=== PATIENT | female | born 1985 | race African-American/Black ===

== ENCOUNTER 2018-04-08 14:45 | Emergency (ER) | payer OTHER ==
[2018-04-08 15:13] VITALS: BP 107/79
--- NOTE | 2018-04-08 16:29 | ED Physician Documentation ---
History of Present Illness - Stated complaint Stated Complaint: FLU LIKE SX - Chief complaint Chief Complaint: General - History obtained from History obtained from: Patient - History of Present Illness Timing: Other (She has been sick for about a week and a half with cough and congestion as well as a fever A few days ago but that is now gone.) Review of Systems Constitutional: reports: Fever (gone) Ears: denies: Ear pain Nose: reports: Rhinorrhea / runny nose Throat: reports: Sore throat Respiratory: reports: Cough. denies: Dyspnea PD PAST MEDICAL HISTORY - Present Medications Home Medications: Ambulatory Orders Medication Instructions Recorded Confirmed Guaifenesin/Dextromethorphan 5 ml PO Q6H PRN #120 ml 04/08/18 [Cough Dm Syrup] Ibuprofen [Motrin] 800 mg PO Q8H PRN #30 tablet 04/08/18 - Allergies Allergies/Adverse Reactions: Allergies Allergy/AdvReac Type Severity Reaction Status Date / Time No Known Drug Allergies Allergy Verified 04/08/18 15:13 PD ED PE NORMAL - Vitals Vital signs reviewed: Yes - General General: Alert and oriented X 3, No acute distress - HEENT HEENT: Ears normal, Pharynx benign - Neck Neck: Supple, no meningeal sign, No bony TTP - Cardiac Cardiac: RRR, No murmur - Respiratory Respiratory: No respiratory distress, Clear bilaterally - Abdomen Abdomen: Non tender - Derm Derm: No rash - Neuro Neuro: Alert and oriented X 3, Normal speech Results - Vitals Vitals: Vital Signs - 24 hr 04/08/18 15:10 Temperature 36.9 C Heart Rate 114 H Respiratory 18 Rate Blood Pressure 107/79 O2 Saturation 98 Oxygen O2 Source Room air - Labs Labs: Laboratory Tests 04/08/18 15:17 Influenza A (Rapid) Negative Influenza B (Rapid) Negative Departure - Departure Disposition: 01 Home, Self Care Clinical Impression: Viral URI with cough Condition: Good Record reviewed to determine appropriate education?: Yes Instructions: ED Upper Resp Infec No Abx Tx Prescriptions: Guaifenesin/Dextromethorphan [Cough Dm Syrup] 5 ml PO Q6H PRN #120 ml PRN Reason: Cough Ibuprofen [Motrin] 800 mg PO Q8H PRN #30 tablet PRN Reason: PAIN &/OR FEVER Comments: Return if fevers recur or if worsening. Drink plenty of fluids. Follow-up with your doctor at the end of the week if not better. Forms: Activity restrictions
== END 2018-04-08 17:01 | disposition home or self-care (01) ==
LOC: ED 14:45
DX: J06.9 Acute upper respiratory infection, unspecified (principal)
CPT/HCPCS: 87275; 87276; 99283

== ENCOUNTER 2018-05-26 15:32 | Emergency (ER) | payer OTHER ==
--- NOTE | 2018-05-26 16:08 | ED Physician Documentation ---
PD HPI BACK PAIN - Stated complaint Stated Complaint: BACK PX - Chief complaint Chief Complaint: Back Pain - History obtained from History obtained from: Patient - History of Present Illness Timing - onset: Yesterday Timing - duration: Days (1) Timing - details: Abrupt onset (There was no significant injury but noted onset of right lower back pain with bending over yesterday. She has had prior similar back pains but the last episode was 1-1/2 years ago and lasted for several days to week or so. She had been doing okay recently and then the onset of pain yesterday which was worse today. She denies any numbness tingling in her legs. She denies any incontinence. She has not had any fever or chills. There is no skin rash.), Still present (Worse today with getting up and moving around.) Location: Lower, Right Quality: Spasm, Sharp Associated symptoms: No: Fever, Weakness, Numbness, Incontinent of urine Worsened by: Movement, Twisting, Palpation Contributing factors: Lifting. No: Trauma Similar symptoms before: Diagnosis (L5 HNP with episodic lower back pains. No prior radiculitis.) Recently seen: Not recently seen Review of Systems Constitutional: denies: Fever, Chills, Myalgias Nose: denies: Rhinorrhea / runny nose, Congestion Throat: denies: Sore throat Respiratory: denies: Cough GI: denies: Nausea, Vomiting, Diarrhea : denies: Dysuria, Frequency, Incontinent Neurologic: denies: Focal weakness, Numbness PD PAST MEDICAL HISTORY - Past Medical History Cardiovascular: None Respiratory: None Neuro: None Endocrine/Autoimmune: None - Past Surgical History Past Surgical History: No - Present Medications Home Medications: Ambulatory Orders Medication Instructions Recorded Confirmed Methocarbamol [Robaxin] 500 mg PO Q6H PRN #30 tablet 05/26/18 Naproxen 500 mg PO BID #20 tablet 05/26/18 Oxycodone HCl/Acetaminophen 1 - 2 each PO Q6H PRN #25 tablet 05/26/18 [Percocet 5-325 mg Tablet] - Allergies Allergies/Adverse Reactions: Allergies Allergy/AdvReac Type Severity Reaction Status Date / Time No Known Drug Allergies Allergy Verified 05/26/18 15:36 - Social History Does the pt smoke?: No Smoking Status: Never smoker Does the pt drink ETOH?: No Does the pt have substance abuse?: No - Immunizations Immunizations are current?: Yes - POLST Patient has POLST: No PD ED PE NORMAL - Vitals Vital signs reviewed: Yes - General General: Alert and oriented X 3, Well developed/nourished, Other (does appear in pain) - Abdomen Abdomen: Soft, Non tender - Back Back: No CVA TTP, No spinal TTP (She is actually mainly tender in the right upper SI joint area and iliac crest. There is no rash or sores noted in the area. She does have some point tenderness which triggers her discomfort. There is normal sensation to light touch and pinprick in both legs in a dermatomal areas. She has good color and capillary refill in the feet. There is good motor in the lower legs. She has pain with range of motion of the low back.) - Derm Derm: Normal color, Warm and dry, No rash - Extremities Extremities: No tenderness to palpate - Neuro Neuro: Alert and oriented X 3, No motor deficit, No sensory deficit, Normal speech Results - Vitals Vitals: Vital Signs - 24 hr 05/26/18 05/26/18 15:34 18:07 Temperature 36.8 C 36.5 C Heart Rate 85 80 Respiratory 18 18 Rate Blood Pressure 119/80 109/64 O2 Saturation 99 97 Oxygen O2 Source Room air PD MEDICAL DECISION MAKING - ED course Complexity details: considered differential (Low back pain without any red flags. She is quite uncomfortable and she is given some parenteral IM medicati ons in the ER. This helped moderately. She did have a focal tenderness at the right SI joint and I did a trigger point injection with Marcaine and Kenalog and give another dose of Dilaudid. Between the 2 shoes reasonably comfortable and able to move around and ambulate. We will discharge her home.), d/w patient Departure - Departure Disposition: , Self Care Clinical Impression: Back pain Qualifiers: Back pain location: low back pain Chronicity: acute Back pain laterality: right Sciatica presence: without sciatica Qualified Code(s): M54.5 - Low back pain Condition: Stable Record reviewed to determine appropriate education?: Yes Instructions: ED Low Back Pain Injury Follow-Up: Arvind Virk MD [Primary Care Provider] - Prescriptions: Methocarbamol [Robaxin] 500 mg PO Q6H PRN #30 tablet PRN Reason: Spasms Naproxen 500 mg PO BID #20 tablet Oxycodone HCl/Acetaminophen [Percocet 5-325 mg Tablet] 1 - 2 each PO Q6H PRN #25 tablet PRN Reason: pain Comments: Heat and gentle stretching for the low back. Physical treatment modalities such as chiropractic and massage are also good. Use an anti-inflammatory such as naproxen 500 mg twice daily. Add Robaxin muscle relaxant for spasms and stiffness. To this add Tylenol or Percocet if needed for pains. Recheck if not improving well over the next few days. Progress activity as able.
[2018-05-26] MEDS ORDERED: METHOCARBAMOL 500 MG TABLET PO STA ×2 (16:10→16:30)
[2018-05-26] MEDS ORDERED: CHERRY SYRUP 10 ML UDC PO ONE ×2 (16:10→16:30)
[2018-05-26] MEDS ORDERED: ACETAMINOPHEN 325 MG TABLET PO STA (16:10)
[2018-05-26] MEDS ORDERED: DEXAMETHASONE 10 MG/ML VIAL PO STA ×2 (16:10→16:30)
[2018-05-26] MEDS ORDERED: KETOROLAC 30 MG/ML VIAL IM STA (16:30)
[2018-05-26] MEDS ORDERED: HYDROmorphone 2 MG/ML VIAL IM STA ×2 (16:30→17:27)
[2018-05-26] MEDS ORDERED: BUPIVACAINE 0.5%-EPI 1:200000 PF 10 ML VIAL SUBQ STA (17:27)
[2018-05-26] MEDS ORDERED: TRIAMCINOLONE 40 MG/ML VIAL IM STA (17:27)
[2018-05-26 18:09] VITALS: BP 109/64
== END 2018-05-26 18:34 | disposition home or self-care (01) ==
LOC: ED 15:32
DX: M54.5 Low back pain (principal)
CPT/HCPCS: 20552; 96372; 99283; A9270; J1170

== ENCOUNTER 2018-07-02 07:25 | Outpatient (CLI) | payer OTHER ==
[2018-07-02] MEDS ORDERED: GADOBUTROL 10 MMOL/10 ML VIAL ONE (07:41)
[2018-07-02] MEDS ORDERED: GADOBUTROL 10 MMOL/10 ML VIAL IVP ONE ×2 (08:12)
--- NOTE | 2018-07-02 16:29 | MRI Report ---
Reason: OTHER SPECIFIED JOINT DISORDERS,RIGHT WRIST,GANGLI Procedure Date: 07/02/2018 Accession Number: [id number] / [id number] Procedure: MRI - Wrist RT W/WO CPT Code: FULL RESULT: EXAM: RIGHT WRIST MRI WITHOUT AND WITH CONTRAST EXAM DATE: 07/02/2018 09:15 AM. CLINICAL HISTORY: Other specified joint disorders, right wrist, ganglion. COMPARISON: None. TECHNIQUE: Multiplanar, multisequence T1-weighted and fluid-sensitive sequences of the wrist before and after administration of intravenous contrast. IV contrast: 8 mL Gadavist given IV contrast, no reaction. Other: None. FINDINGS: Bones: No fractures or subluxations. No marrow edema or abnormal enhancement. No bone lesions. Cartilage: The articular cartilage is unremarkable. The triangular fibrocartilage complex is unremarkable. Ligaments: The scapholunate and lunotriquetral ligaments are intact. The visualized other intrinsic, extrinsic and collateral ligaments are unremarkable. Mild DISI deformity is present. Tendons: The extensor compartments I through and flexor tendons are unremarkable without tear or tenosysnovitis. Musculature: No edema or fatty atrophy. Other: The contents of the carpal tunnel, including the median nerve, are unremarkable. Guyons canal is unremarkable. There is a fairly large intermediate on T1, increased T2 benign-appearing cystic structure located at the volar medial aspect of the wrist just proximal to the pisiform-hamate articulation. Minimal peripheral enhancement. This measures 1.9 x 1.5 cm transversely and extends for 2 cm cephalocaudal extent. No joint effusions or synovitis. The subcutaneous tissues are unremarkable. No abscess or cellulitis. IMPRESSION: 1. Ganglion cyst is seen at the volar medial aspect of the wrist just proximal to the pisiform-hamate articulation. Minimal peripheral enhancement. This is a benign appearance, measuring 1.9 x 1.5 cm transversely extending for a 2 cm cephalocaudal extent. RADIA
== END 2018-07-02 07:26 | disposition home or self-care (01) ==
LOC: DI 07:25
PROVIDERS: ATTEND Orthopaedic Surgery
DX: M67.431 Ganglion, right wrist (principal)
CPT/HCPCS: 73223; A9585

== ENCOUNTER 2018-09-03 15:02 | Emergency (ER) | payer OTHER ==
[2018-09-03] MEDS ORDERED: AMOX/CLAV 875 MG/125 MG TABLET PO STA (16:12)
[2018-09-03] MEDS ORDERED: IBUPROFEN 800 MG TABLET PO STA (16:13)
--- NOTE | 2018-09-03 16:16 | ED Physician Documentation ---
PD HPI HEADACHE - Stated complaint Stated Complaint: SINUS PRESSURE - Chief complaint Chief Complaint: Heent - History obtained from History obtained from: Patient - History of Present Illness Timing - onset: How many days ago (8) Timing - duration: Days (8) Timing - details: Gradual onset Worst headache ever?: Worst headache ever? (No) Location: Front Quality: Aching Associated symptoms: Other (sinus pressure) Similar symptoms before: Has not had sx before - Additional information Additional information: The patient is a 33-year-old female who complains of sinus pressure for the past 8 days. She has had congestion, fatigue, frontal headache, fever and chills, as well as swollen cervical lymph nodes. She was seen in clinic 5 days ago and was prescribed Afrin nasal spray. She has been using Advil intermittently, without relief. She denies sore throat, cough, nausea or vomiting. She denies history of similar symptoms in the past. Review of Systems Constitutional: reports: Fever, Chills, Fatigue Eyes: denies: Irritation Ears: denies: Tinnitus/ringing Nose: reports: Congestion Throat: denies: Sore throat Cardiac: denies: Chest pain / pressure Respiratory: denies: Dyspnea, Cough GI: denies: Abdominal Pain, Nausea, Vomiting : denies: Dysuria Skin: denies: Rash Musculoskeletal: denies: Neck pain, Extremity pain Neurologic: reports: Headache. denies: Focal weakness, Numbness PD PAST MEDICAL HISTORY - Past Medical History Cardiovascular: None Respiratory: None Neuro: None Endocrine/Autoimmune: None - Past Surgical History Past Surgical History: No - Present Medications Home Medications: Ambulatory Orders Medication Instructions Recorded Confirmed Methocarbamol [Robaxin] 500 mg PO Q6H PRN #30 tablet 05/26/18 Naproxen 500 mg PO BID #20 tablet 05/26/18 Oxycodone HCl/Acetaminophen 1 - 2 each PO Q6H PRN #25 tablet 05/26/18 [Percocet 5-325 mg Tablet] Amox/Clav 875/125 [Augmentin] 1 each PO Q12H #14 tablet 09/03/18 Hydrocodone/Acetaminophen 1 - 2 each PO Q6H PRN #14 tablet 09/03/18 [Hydrocodon-Acetaminophen 5-325] - Allergies Allergies/Adverse Reactions: Allergies Allergy/AdvReac Type Severity Reaction Status Date / Time No Known Drug Allergies Allergy Verified 09/03/18 15:30 - Social History Does the pt smoke?: No Smoking Status: Never smoker Does the pt drink ETOH?: No Does the pt have substance abuse?: No - Immunizations Immunizations are current?: Yes - POLST Patient has POLST: No PD ED PE NORMAL - Vitals Vital signs reviewed: Yes (normal) - General General: Alert and oriented X 3, Well developed/nourished, Other (Appears miserable.) - HEENT HEENT: Atraumatic, EOMI, Ears normal, Pharynx benign, Other (Tenderness to percussion over the maxillary sinuses as well as frontal sinuses.) - Neck Neck: Supple, no meningeal sign, Other (Anterior cervical adenopathy bilaterally.) - Cardiac Cardiac: RRR, No murmur - Respiratory Respiratory: No respiratory distress, Clear bilaterally - Abdomen Abdomen: Soft, Non tender - Back Back: No CVA TTP - Derm Derm: No rash - Extremities Extremities: No edema, No calf tenderness / cord - Neuro Neuro: Alert and oriented X 3, No motor deficit, Normal speech Results - Vitals Vitals: Vital Signs - 24 hr 09/03/18 15:28 Temperature 36.7 C Heart Rate 91 Respiratory 17 Rate Blood Pressure 119/82 H O2 Saturation 100 Oxygen O2 Source Room air PD MEDICAL DECISION MAKING - ED course Complexity details: re-evaluated patient, considered differential, d/w patient ED course: Patient's presentation is most consistent with sinusitis. Her presentation does not suggest meningitis, peritonsillar abscess, or pneumonia. Treatment in the emergency department included administration of Augmentin 875 mg orally and ibuprofen 800 mg orally. She is being discharged with prescription for Augmentin. I discussed with her the expected course of illn ess, antibiotic treatment and outpatient follow-up, as well as potentially worrisome signs or symptoms that should prompt reevaluation in the emergency department. Departure - Departure Disposition: 01 Home, Self Care Clinical Impression: Sinusitis, acute Qualifiers: Sinusitis location: unspecified location Recurrence: non-recurrent Qualified Code(s): J01.90 - Acute sinusitis, unspecified Condition: Stable Instructions: ED Sinusitis Abx Tx Follow-Up: Arvind Virk MD [Primary Care Provider] - Prescriptions: Amox/Clav 875/125 [Augmentin] 1 each PO Q12H #14 tablet Hydrocodone/Acetaminophen [Hydrocodon-Acetaminophen 5-325] 1 - 2 each PO Q6H PRN #14 tablet PRN Reason: pain Comments: Take Augmentin twice daily as prescribed. Use Afrin nasal spray as previously prescribed. You can use ibuprofen, up to 800 mg 3 times daily for fever or discomfort. You can use Vicodin as prescribed if needed for pain. Follow-up with your primary physician within 1 to 2 weeks. Call to schedule an appointment. Return to the emergency department if you develop increasing pain, fever with shaking chills, or otherwise worsening symptoms. Forms: Activity restrictions
[2018-09-03 16:46] VITALS: BP 118/91
== END 2018-09-03 16:51 | disposition home or self-care (01) ==
LOC: ED 15:02
DX: J01.90 Acute sinusitis, unspecified (principal)
CPT/HCPCS: 99283; 99284; A9270

== ENCOUNTER 2018-11-17 11:07 | Emergency (ER) | payer OTHER ==
[2018-11-17] MEDS ORDERED: ALBUTEROL NEB 2.5 MG/3 ML INH STA (12:26)
--- NOTE | 2018-11-17 12:33 | ED Physician Documentation ---
History of Present Illness - Stated complaint Stated Complaint: COLD SX - Chief complaint Chief Complaint: Resp - History obtained from History obtained from: Patient, Family - History of Present Illness Timing: How many weeks ago (1) Pain level max: 5 Pain level now: 3 - Additonal information Additional information: 33-year-old female presents to the emergency department complaining of productive cough and nasal congestion for the past week. No fevers. Mild sore throat. No vomiting. She is not , breast-feeding or trying to become . Has used inhalers in the past. Currently does not have an inhaler. Review of Systems Constitutional: reports: Chills. denies: Fever Nose: reports: Rhinorrhea / runny nose, Congestion GI: denies: Vomiting, Diarrhea : denies: Now EGA Skin: denies: Rash Musculoskeletal: denies: Neck pain, Back pain PD PAST MEDICAL HISTORY - Past Medical History Past Medical History: No Cardiovascular: None Respiratory: None Neuro: None Endocrine/Autoimmune: None - Past Surgical History Past Surgical History: No - Present Medications Home Medications: Ambulatory Orders Medication Instructions Recorded Confirmed Methocarbamol [Robaxin] 500 mg PO Q6H PRN #30 tablet 05/26/18 Naproxen 500 mg PO BID #20 tablet 05/26/18 Oxycodone HCl/Acetaminophen 1 - 2 each PO Q6H PRN #25 tablet 05/26/18 [Percocet 5-325 mg Tablet] Amox/Clav 875/125 [Augmentin] 1 each PO Q12H #14 tablet 09/03/18 Hydrocodone/Acetaminophen 1 - 2 each PO Q6H PRN #14 tablet 09/03/18 [Hydrocodon-Acetaminophen 5-325] Albuterol Sulf [Ventolin Hfa 1 - 2 puffs INH Q4HR PRN #1 inhaler 11/17/18 Inhaler] Benzonatate [Tessalon Perle] 100 - 200 mg PO TID PRN #30 capsule 11/17/18 Cetirizine HCl/Pseudoephedrine 1 each PO BID PRN #30 tab.er.12h 11/17/18 [Zyrtec-D Tablet] - Allergies Allergies/Adverse Reactions: Allergies Allergy/AdvReac Type Severity Reaction Status Date / Time No Known Drug Allergies Allergy Verified 09/03/18 15:30 - Social History Does the pt smoke?: No Smoking Status: Never smoker Does the pt drink ETOH?: No Does the pt have substance abuse?: No - Immunizations Immunizations are current?: Yes - POLST Patient has POLST: No PD ED PE NORMAL - Vitals Vital signs reviewed: Yes - General General: Alert and oriented X 3, No acute distress, Well developed/nourished - HEENT HEENT: PERRL, Ears normal, Moist mucous membranes, Pharynx benign, Other (No sinus tenderness) - Neck Neck: Supple, no meningeal sign, Other (Shotty anterior lymphadenopathy) - Cardiac Cardiac: RRR - Respiratory Respiratory: No respiratory distress, Other (Wheezing bilaterally) - Abdomen Abdomen: Soft, Non tender, Non distended - Derm Derm: Warm and dry, No rash - Neuro Neuro: Alert and oriented X 3 - Psych Psych: Normal mood, Normal affect Results - Vitals Vitals: Vital Signs - 24 hr 11/17/18 11/17/18 11/17/18 11:12 12:40 13:29 Temperature 36.8 C Heart Rate 85 81 77 Respiratory 18 20 18 Rate Blood Pressure 124/74 110/75 O2 Saturation 100 99 Oxygen O2 Source Room air - Rads (name of study) cxr Radiology: Prelim report reviewed, EMP read contemporaneously, See rad report (Mild bronchial wall thickening centrally, suggesting airway disease. No focal lung consolidation or pleural effusions.) PD MEDICAL DECISION MAKING - ED course Complexity details: reviewed results, re-evaluated patient, considered differential, d/w patient ED course: 33-year-old female with what appears to be a viral upper respiratory infection. Will prescribe cough medication, decongestants and albuterol for home. No evidence of pneumonia. No evidence of sinus infection that requires antibiotics. Patient is well-appearing, nontoxic. Patient counseled regarding signs and symptoms for which I believe and urgent re-evaluation would be necessary. Patient with good understanding of and agreement to plan and is comfortable going home at this time This document was made in part using voice recognition software. While efforts are made to proofread this document, sound alike and grammatical errors may occur. Departure - Departure Disposition: 01 Home, Self Care Clinical Impression: Viral URI with cough Condition: Good Instructions: ED URI Viral Follow-Up: Arvind Virk MD [Primary Care Provider] - Within 1 week Prescriptions: Albuterol Sulf [Ventolin Hfa Inhaler] 1 - 2 puffs INH Q4HR PRN #1 inhaler PRN Reason: Shortness Of Air/Wheezing Benzonatate [Tessalon Perle] 100 - 200 mg PO TID PRN #30 capsule PRN Reason: Cough Cetirizine HCl/Pseudoephedrine [Zyrtec-D Tablet] 1 each PO BID PRN #30 tab.er.12h PRN Reason: nasal congestion Comments: You have inflammation in your airways on your chest x-ray. I would recommend that you use the inhaler at home. We will also place you on decongestants and cough medication. This will likely last another 5 to 7 days. Return if you worsen. Forms: Activity restrictions Discharge Date/Time: 11/17/18 13:33
--- NOTE | 2018-11-17 13:24 | XRAY Report ---
Reason: cough Procedure Date: 11/17/2018 Accession Number: [id number] / [id number] Procedure: XR - Chest 2 View X-Ray CPT Code: 70893 FULL RESULT: EXAM: CHEST RADIOGRAPHY EXAM DATE: 11/17/2018 01:01 PM. CLINICAL HISTORY: Cough. COMPARISON: None. TECHNIQUE: 2 views. FINDINGS: Lungs/Pleura: Small amount of bronchial wall thickening centrally. No focal lung consolidation. No pleural effusion. No pneumothorax. Mediastinum: Cardiac silhouette size appears unremarkable. Other: None. IMPRESSION: Mild bronchial wall thickening centrally, suggesting airways disease. No focal lung consolidation or pleural effusions. RADIA
[2018-11-17 13:29] VITALS: BP 110/75
== END 2018-11-17 13:33 | disposition home or self-care (01) ==
LOC: ED 11:07
DX: J06.9 Acute upper respiratory infection, unspecified (principal)
CPT/HCPCS: 71046; 94640; 99283

== ENCOUNTER 2018-12-02 18:42 | Emergency (ER) | payer OTHER ==
[2018-12-02] MEDS ORDERED: AMOX/CLAV 875 MG/125 MG TABLET PO STA (18:52)
[2018-12-02 18:53] VITALS: BP 121/84
--- NOTE | 2018-12-02 18:53 | ED Physician Documentation ---
PD HPI URI - Stated complaint Stated Complaint: SINUS CONGESTION/PX - History obtained from History obtained from: Patient - History of Present Illness Timing - onset: Other (33-year-old woman with history of recurrent sinusitis presents with almost 3 weeks of severe sinus pain especially over the right maxillary sinus and congestion. Had a cough but is now gone. No fevers.) Review of Systems Constitutional: denies: Fever, Chills, Fatigue Ears: denies: Ear pain Nose: reports: Rhinorrhea / runny nose, Congestion, Sinus pressure / pain Throat: denies: Sore throat PD PAST MEDICAL HISTORY - Past Medical History Cardiovascular: None Respiratory: None Neuro: None Endocrine/Autoimmune: None - Past Surgical History Past Surgical History: No - Present Medications Home Medications: Ambulatory Orders Medication Instructions Recorded Confirmed Methocarbamol [Robaxin] 500 mg PO Q6H PRN #30 tablet 05/26/18 Naproxen 500 mg PO BID #20 tablet 05/26/18 Oxycodone HCl/Acetaminophen 1 - 2 each PO Q6H PRN #25 tablet 05/26/18 [Percocet 5-325 mg Tablet] Amox/Clav 875/125 [Augmentin] 1 each PO Q12H #14 tablet 09/03/18 Hydrocodone/Acetaminophen 1 - 2 each PO Q6H PRN #14 tablet 09/03/18 [Hydrocodon-Acetaminophen 5-325] Albuterol Sulf [Ventolin Hfa 1 - 2 puffs INH Q4HR PRN #1 inhaler 11/17/18 Inhaler] Benzonatate [Tessalon Perle] 100 - 200 mg PO TID PRN #30 capsule 11/17/18 Cetirizine HCl/Pseudoephedrine 1 each PO BID PRN #30 tab.er.12h 11/17/18 [Zyrtec-D Tablet] Amox/Clav 875/125 [Augmentin] 1 each PO Q12H #20 tablet 12/02/18 Mometasone Furoate [Nasonex] 1 spray NS BID #1 spray.pump 12/02/18 - Allergies Allergies/Adverse Reactions: Allergies Allergy/AdvReac Type Severity Reaction Status Date / Time No Known Drug Allergies Allergy Verified 09/03/18 15:30 - Social History Does the pt smoke?: No Smoking Status: Never smoker Does the pt drink ETOH?: No Does the pt have substance abuse?: No - Immunizations Immunizations are current?: Yes - POLST Patient has POLST: No PD ED PE NORMAL - Vitals Vital signs reviewed: Yes - General General: Alert and oriented X 3, No acute distress - HEENT HEENT: Other (Quite tender over the frontal and maxillary sinuses, especially the right maxillary sinus. Oropharynx is normal as are the TMs.) - Neck Neck: Supple, no meningeal sign, No bony TTP - Neuro Neuro: Alert and oriented X 3, Normal speech Results - Vitals Vitals: Oxygen O2 Source Room air PD MEDICAL DECISION MAKING - ED course ED course: Given the time course and severity of symptoms she does merit a trial of antibiotic therapy per IDSA guidelines. Departure - Departure Disposition: 01 Home, Self Care Clinical Impression: Sinusitis, acute Qualifiers: Sinusitis location: maxillary Recurrence: recurrent Qualified Code(s): J01.01 - Acute recurrent maxillary sinusitis Condition: Good Record reviewed to determine appropriate education?: Yes Instructions: ED Sinusitis Abx Tx Prescriptions: Amox/Clav 875/125 [Augmentin] 1 each PO Q12H #20 tablet Mometasone Furoate [Nasonex] 1 spray NS BID #1 spray.pump Comments: Recheck with your doctor in 1 week. Return if worse.
== END 2018-12-02 18:56 | disposition home or self-care (01) ==
LOC: ED 18:42
DX: J01.01 Acute recurrent maxillary sinusitis (principal)
CPT/HCPCS: 99282; 99283; A9270

== ENCOUNTER 2018-12-10 17:47 | Emergency (ER) | payer OTHER ==
[2018-12-10] MEDS ORDERED: TRIAMCINOLONE 40 MG/ML VIAL IM STA (19:34)
[2018-12-10] MEDS ORDERED: KETOROLAC 60 MG/2 ML VIAL IM STA (19:34)
[2018-12-10] MEDS ORDERED: BUPIVACAINE 0.5%-EPI 1:200000 PF 10 ML VIAL IM STA (19:34)
[2018-12-10] MEDS ORDERED: HYDROmorphone 1 MG/ML CARPUJECT IM STA (19:34)
--- NOTE | 2018-12-10 19:36 | ED Physician Documentation ---
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 She has a history of a herniated disc at L5-S1. Usually she does not have any back pain but yesterday after bowling she developed severe gradual onset low back pain radiating towards the tailbone. She denies weakness, numbness, tingling, saddle anesthesia, or fevers. No possibility of . 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 - Present Medications Home Medications: Ambulatory Orders Medication Instructions Recorded Confirmed Methocarbamol [Robaxin] 500 mg PO Q6H PRN #30 tablet 05/26/18 Naproxen 500 mg PO BID #20 tablet 05/26/18 Oxycodone HCl/Acetaminophen 1 - 2 each PO Q6H PRN #25 tablet 05/26/18 [Percocet 5-325 mg Tablet] Amox/Clav 875/125 [Augmentin] 1 each PO Q12H #14 tablet 09/03/18 Hydrocodone/Acetaminophen 1 - 2 each PO Q6H PRN #14 tablet 09/03/18 [Hydrocodon-Acetaminophen 5-325] Albuterol Sulf [Ventolin Hfa 1 - 2 puffs INH Q4HR PRN #1 inhaler 11/17/18 Inhaler] Benzonatate [Tessalon Perle] 100 - 200 mg PO TID PRN #30 capsule 11/17/18 Cetirizine HCl/Pseudoephedrine 1 each PO BID PRN #30 tab.er.12h 11/17/18 [Zyrtec-D Tablet] Amox/Clav 875/125 [Augmentin] 1 each PO Q12H #20 tablet 12/02/18 Mometasone Furoate [Nasonex] 1 spray NS BID #1 spray.pump 12/02/18 Cyclobenzaprine [Flexeril] 10 mg PO TID PRN #20 tablet 12/10/18 Hydrocodone/Acetaminophen 1 - 2 each PO Q6H PRN #14 tablet 12/10/18 [Hydrocodon-Acetaminophen 5-325] Ibuprofen [Motrin] 800 mg PO Q8H PRN #30 tablet 12/10/18 - Allergies Allergies/Adverse Reactions: Allergies Allergy/AdvReac Type Severity Reaction Status Date / Time shellfish derived Allergy Anaphylaxis Verified 12/10/18 18:02 - Social History Does the pt smoke?: No Smoking Status: Never smoker Does the pt drink ETOH?: Yes Does the pt have substance abuse?: No - Immunizations Immunizations are current?: Yes - POLST Patient has POLST: No PD ED PE NORMAL - Vitals Vital signs reviewed: Yes - General General: Alert and oriented X 3, No acute distress - HEENT HEENT: PERRL, EOMI - Neck Neck: Supple, no meningeal sign, No bony TTP - Cardiac Cardiac: RRR, No murmur - Respiratory Respiratory: No respiratory distress, Clear bilaterally - Abdomen Abdomen: Non tender - Back Back: No spinal TTP, Other (Tender to the left low lumbar spine) - Extremities Extremities: Other (Mildly diminished sensation in left L4 and L5-S1 distribution, she has normal strength and sensation in the right leg and normal strength in the left leg.) - Neuro Neuro: Alert and oriented X 3, Normal speech Results - Vitals Vitals: Vital Signs - 24 hr 12/10/18 18:02 Temperature 36.7 C Heart Rate 79 Respiratory 18 Rate Blood Pressure 106/70 O2 Saturation 99 Oxygen O2 Source Room air - Labs Labs: Trigger point injection with 9ml of marcaine with epi and 40mg kenaolg in L paralumbar trigger point p alcohol Departure - Departure Disposition: 01 Home, Self Care Clinical Impression: Sciatica Qualifiers: Laterality: left Qualified Code(s): M54.32 - Sciatica, left side Condition: Good Record reviewed to determine appropriate education?: Yes Instructions: ED Sciatica Prescriptions: Cyclobenzaprine [Flexeril] 10 mg PO TID PRN #20 tablet PRN Reason: Spasms Hydrocodone/Acetaminophen [Hydrocodon-Acetaminophen 5-325] 1 - 2 each PO Q6H PRN #14 tablet PRN Reason: pain Ibuprofen [Motrin] 800 mg PO Q8H PRN #30 tablet PRN Reason: PAIN &/OR FEVER Comments: Call your doctor to arrange a follow-up appointment, make the next available appointment. In the interim, return anytime if worse or if new symptoms develop. Forms: Activity restrictions
[2018-12-10 20:12] VITALS: BP 111/81
== END 2018-12-10 20:17 | disposition home or self-care (01) ==
LOC: ED 17:47
DX: M54.42 Lumbago with sciatica, left side (principal)
CPT/HCPCS: 20552; 96372; 99282; 99284; J1170

== ENCOUNTER 2019-01-11 13:03 | Emergency (ER) | payer OTHER ==
[2019-01-11 13:12] VITALS: BP 118/81
[2019-01-11] MEDS ORDERED: TRIAMCINOLONE 40 MG/ML VIAL IM STA (13:18)
[2019-01-11] MEDS ORDERED: BUPIVACAINE 0.25% PF 30 ML VIAL SUBQ STA (13:18)
[2019-01-11] MEDS ORDERED: KETOROLAC 60 MG/2 ML VIAL IM STA (13:18)
[2019-01-11] MEDS ORDERED: HYDROmorphone 1 MG/ML CARPUJECT IM STA (13:18)
--- NOTE | 2019-01-11 13:19 | ED Physician Documentation ---
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 Has a history of an L5 disc herniation. It has been sore for some time now but over the last few days has had increasing pain in the left low back which is not radiating. It has been unresponsive to NSAIDs and muscle relaxers. 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 - Present Medications Home Medications: Ambulatory Orders Medication Instructions Recorded Confirmed Methocarbamol [Robaxin] 500 mg PO Q6H PRN #30 tablet 05/26/18 Naproxen 500 mg PO BID #20 tablet 05/26/18 Oxycodone HCl/Acetaminophen 1 - 2 each PO Q6H PRN #25 tablet 05/26/18 [Percocet 5-325 mg Tablet] Amox/Clav 875/125 [Augmentin] 1 each PO Q12H #14 tablet 09/03/18 Hydrocodone/Acetaminophen 1 - 2 each PO Q6H PRN #14 tablet 09/03/18 [Hydrocodon-Acetaminophen 5-325] Albuterol Sulf [Ventolin Hfa 1 - 2 puffs INH Q4HR PRN #1 inhaler 11/17/18 Inhaler] Benzonatate [Tessalon Perle] 100 - 200 mg PO TID PRN #30 capsule 11/17/18 Cetirizine HCl/Pseudoephedrine 1 each PO BID PRN #30 tab.er.12h 11/17/18 [Zyrtec-D Tablet] Amox/Clav 875/125 [Augmentin] 1 each PO Q12H #20 tablet 12/02/18 Mometasone Furoate [Nasonex] 1 spray NS BID #1 spray.pump 12/02/18 Cyclobenzaprine [Flexeril] 10 mg PO TID PRN #20 tablet 12/10/18 Hydrocodone/Acetaminophen 1 - 2 each PO Q6H PRN #14 tablet 12/10/18 [Hydrocodon-Acetaminophen 5-325] Ibuprofen [Motrin] 800 mg PO Q8H PRN #30 tablet 12/10/18 Hydrocodone/Acetaminophen 1 - 2 each PO Q6H PRN #14 tablet 01/11/19 [Hydrocodon-Acetaminophen 5-325] - Allergies Allergies/Adverse Reactions: Allergies Allergy/AdvReac Type Severity Reaction Status Date / Time shellfish derived Allergy Anaphylaxis Verified 01/11/19 13:12 - Social History Does the pt smoke?: No Smoking Status: Never smoker Does the pt drink ETOH?: Yes Does the pt have substance abuse?: No - Immunizations Immunizations are current?: Yes - POLST Patient has POLST: No PD ED PE NORMAL - Vitals Vital signs reviewed: Yes - General General: Alert and oriented X 3, No acute distress - Extremities Extremities: Other (Muscular tenderness in the left low back, no midline tenderness. The patient has equal and normal Achilles and patellar reflexes bilaterally. Normal sensation in all areas of the legs. Patient denies saddle anesthesia. Normal strength in flexion-extension at the ankles, knees, and flexion of the hips.) - Neuro Neuro: Alert and oriented X 3, Normal speech Results - Vitals Vitals: Vital Signs - 24 hr 01/11/19 13:09 Temperature 37 C Heart Rate 95 Respiratory 17 Rate Blood Pressure 118/81 H O2 Saturation 99 Oxygen O2 Source Room air Procedures - General procedure General procedure: After verbal informed consent to trigger point injection was done in the left low back after alcohol prep with a total of 8 mL of 0.25% Marcaine and 1 mL with 40 mg of Kenalog. Departure - Departure Disposition: 01 Home, Self Care Clinical Impression: Back pain Qualifiers: Back pain location: low back pain Chronicity: acute Back pain laterality: left Sciatica presence: without sciatica Qualified Code(s): M54.5 - Low back pain Condition: Good Record reviewed to determine appropriate education?: Yes Instructions: ED Neck Back Pain General Prescriptions: Hydrocodone/Acetaminophen [Hydrocodon-Acetaminophen 5-325] 1 - 2 each PO Q6H PRN #14 tablet PRN Reason: pain Comments: [place] for your low back in addition to the other things are in physical therapy for. Return for new or worsening symptoms.
== END 2019-01-11 14:03 | disposition home or self-care (01) ==
LOC: ED 13:03
DX: M54.5 Low back pain (principal); G89.29 Other chronic pain
CPT/HCPCS: 20552; 96372; 99283; J1170

== ENCOUNTER 2019-02-27 14:33 | Emergency (ER) | payer OTHER ==
[2019-02-27 14:52] VITALS: BP 125/73
--- NOTE | 2019-02-27 15:10 | ED Physician Documentation ---
PD HPI URI - Stated complaint Stated Complaint: PHLEGM COUGH, CONGESTION, HEADACHES - Chief complaint Chief Complaint: Heent - History obtained from History obtained from: Patient - History of Present Illness Timing - onset: How many months ago (2) Timing duration: Months (2) Timing details: Gradual onset Pain level max: 0 Pain level now: 0 Associated symptoms: Nasal congestion, Rhinorrhea, Dry cough. No: Fever, Chills Contributing factors: Sick contact (1 year old daughter (attends daycare) and sick with same) Improves by: Rest Worsened by: Activity Recently seen: Not recently seen Review of Systems Constitutional: denies: Fever, Chills Nose: reports: Rhinorrhea / runny nose, Congestion Throat: denies: Sore throat Respiratory: reports: Cough (dry) GI: denies: Vomiting Skin: denies: Rash Musculoskeletal: denies: Neck pain, Back pain Neurologic: denies: Headache PD PAST MEDICAL HISTORY - Past Medical History Cardiovascular: None Respiratory: None Neuro: None Endocrine/Autoimmune: None GI: None 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 : None HEENT: None Psych: None Musculoskeletal: Chronic back pain Derm: None - Past Surgical History Past Surgical History: No General: 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 - Present Medications Home Medications: Ambulatory Orders Medication Instructions Recorded Confirmed Naproxen 500 mg PO BID #20 tablet 05/26/18 Oxycodone HCl/Acetaminophen 1 - 2 each PO Q6H PRN #25 tablet 05/26/18 [Percocet 5-325 mg Tablet] methocarbamoL [Robaxin] 500 mg PO Q6H PRN #30 tablet 05/26/18 Amox/Clav 875/125 [Augmentin] 1 each PO Q12H #14 tablet 09/03/18 Hydrocodone/Acetaminophen 1 - 2 each PO Q6H PRN #14 tablet 09/03/18 [Hydrocodon-Acetaminophen 5-325] Albuterol Sulf [Ventolin Hfa 1 - 2 puffs INH Q4HR PRN #1 inhaler 11/17/18 Inhaler] Benzonatate [Tessalon Perle] 100 - 200 mg PO TID PRN #30 capsule 11/17/18 Cetirizine HCl/Pseudoephedrine 1 each PO BID PRN #30 tab.er.12h 11/17/18 [Zyrtec-D Tablet] Amox/Clav 875/125 [Augmentin] 1 each PO Q12H #20 tablet 12/02/18 Mometasone Furoate [Nasonex] 1 spray NS BID #1 spray.pump 12/02/18 Cyclobenzaprine [Flexeril] 10 mg PO TID PRN #20 tablet 12/10/18 Hydrocodone/Acetaminophen 1 - 2 each PO Q6H PRN #14 tablet 12/10/18 [Hydrocodon-Acetaminophen 5-325] Ibuprofen [Motrin] 800 mg PO Q8H PRN #30 tablet 12/10/18 Hydrocodone/Acetaminophen 1 - 2 each PO Q6H PRN #14 tablet 01/11/19 [Hydrocodon-Acetaminophen 5-325] Benzonatate [Tessalon Perle] 100 - 200 mg PO TID PRN #30 capsule 02/27/19 Cetirizine HCl/Pseudoephedrine 1 each PO BID PRN #30 tab.er.12h 02/27/19 [Zyrtec-D Tablet] Fluticasone [Flonase] 1 sprays MICHELLE BID PRN #1 bottle 02/27/19 - Allergies Allergies/Adverse Reactions: Allergies Allergy/AdvReac Type Severity Reaction Status Date / Time shellfish derived Allergy Anaphylaxis Verified 02/27/19 14:48 - Social History Does the pt smoke?: No Smoking Status: Never smoker Does the pt drink ETOH?: Yes Does the pt have substance abuse?: No - Immunizations Immunizations are current?: Yes - POLST Patient has POLST: No PD ED PE NORMAL - Vitals Vital signs reviewed: Yes - General General: Alert and oriented X 3, No acute distress - HEENT HEENT: Ears normal, Moist mucous membranes, Pharynx benign, Other (no sinus tenderness) - Neck Neck: Supple, no meningeal sign - Cardiac Cardiac: RRR - Respiratory Respiratory: No respiratory distress, Clear bilaterally - Derm Derm: Warm and dry - Neuro Neuro: Alert and oriented X 3 - Psych Psych: Normal mood, Normal affect Results - Vitals Vitals: Vital Signs - 24 hr 02/27/19 14:48 Temperature 36.9 C Heart Rate 95 Respiratory 17 Rate Blood Pressure 125/73 O2 Saturation 98 Oxygen O2 Source Room air PD MEDICAL DECISION MAKING - ED course Complexity details: reviewed old records, considered differential, d/w patient ED course: Patient is well-appearing, nontoxic. Afebrile. Appears to have recurrent viral illnesses, likely due to her young daughter being in daycare. She is well-ap pearing, nontoxic. No hypoxia. We will continue supportive care and have her follow-up with her doctor. Patient counseled regarding signs and symptoms for which I believe and urgent re-evaluation would be necessary. Patient with good understanding of and agreement to plan and is comfortable going home at this time This document was made in part using voice recognition software. While efforts a re made to proofread this document, sound alike and grammatical errors may occur. Departure - Departure Disposition: Home, Self Care Clinical Impression: Viral URI with cough Condition: Good Instructions: ED URI Viral Follow-Up: Arvind Virk MD [Primary Care Provider] - Within 1 week Prescriptions: Benzonatate [Tessalon Perle] 100 - 200 mg PO TID PRN #30 capsule PRN Reason: Cough Cetirizine HCl/Pseudoephedrine [Zyrtec-D Tablet] 1 each PO BID PRN #30 tab.er.12h PRN Reason: nasal congestion Fluticasone [Flonase] 1 sprays MICHELLE BID PRN #1 bottle PRN Reason: Nasal Congestion Comments: Return if you worsen. Drink plenty of fluids. Follow-up with your doctor for further care.
== END 2019-02-27 15:17 | disposition home or self-care (01) ==
LOC: ED 14:33
DX: J06.9 Acute upper respiratory infection, unspecified (principal)
CPT/HCPCS: 99283; 99284

== ENCOUNTER 2019-06-13 01:48 | Emergency (ER) | payer OTHER ==
[2019-06-13 02:58] LABS: BASOPHILS # (AUTO) 0.1 10^3/uL (0.0-0.1); BASOPHILS % (AUTO) 0.7 %; EOSINOPHILS # (AUTO) 0.2 10^3/uL (0.0-0.7); EOSINOPHILS % (AUTO) 3.1 %; LYMPHOCYTES # (AUTO) 3.4 10^3/uL (1.5-3.5); LYMPHOCYTES % (AUTO) 48.9 %; MEAN CORPUSCULAR HEMOGLOBIN 28.3 pg (27.0-31.0); MEAN CORPUSCULAR HGB CONC 32.6 g/dL (32.0-36.0); MEAN CORPUSCULAR VOLUME 86.6 fL (81.0-99.0); MEAN PLATELET VOLUME 10.1 fL (7.9-10.8); MONOCYTES # (AUTO) 0.4 10^3/uL (0.0-1.0); NEUTROPHILS # (AUTO) 2.9 10^3/uL (1.5-6.6); PLT - PLATELET COUNT 240 10^3/uL (130-450); RED BLOOD COUNT 3.89 10^6/uL (4.20-5.40); RED CELL DISTRIBUTION WIDTH 13.7 % (12.0-15.0)
[2019-06-13 03:12] LABS: ALBUMIN 4.1 g/dL (3.2-5.5); ALBUMIN/GLOBULIN RATIO 1.4 (1.0-2.2); CREATININE 0.7 mg/dL (0.4-1.0)
--- NOTE | 2019-06-13 03:14 | ED Physician Documentation ---
PD HPI CHEST PAIN - Stated complaint Stated Complaint: CP - Chief complaint Chief Complaint: Cardiac - History obtained from History obtained from: Patient - History of Present Illness Timing - onset: How many days ago (4) Timing - details: Gradual onset Pain level max: 4 Pain level now: 0 Quality: Pressure, Sharp Location: Left chest Radiation: Other (radiates from anterior left chest to left lateral chest) Improved by: Rest Worsened by: Exertion Associated symptoms: Shortness of air (only during episodes of pain). No: Diaphoresis, Nausea, Vomiting, Palpitations, Cough Similar symptoms before: Has not had sx before Recently seen: Not recently seen Review of Systems Constitutional: denies: Fever, Chills, Sweats Cardiac: reports: Chest pain / pressure. denies: Palpitations, Pedal edema, Calf pain Respiratory: reports: Dyspnea. denies: Cough, Hemoptysis, Wheezing GI: reports: Reviewed and negative : denies: Dysuria, Frequency, Hematuria Skin: denies: Rash Musculoskeletal: denies: Back pain PD PAST MEDICAL HISTORY - Past Medical History Past Medical History: Yes Cardiovascular: None Respiratory: None Neuro: None Endocrine/Autoimmune: None GI: None COMPANION: None : None HEENT: None Psych: None Musculoskeletal: Chronic back pain Derm: None - Past Surgical History Past Surgical History: Yes General: Cholecystectomy, Other Ortho: Other /COMPANION: section - Present Medications Home Medications: Ambulatory Orders Medication Instructions Recorded Confirmed Naproxen 500 mg PO BID #20 tablet 05/26/18 Oxycodone HCl/Acetaminophen 1 - 2 each PO Q6H PRN #25 tablet 05/26/18 [Percocet 5-325 mg Tablet] methocarbamoL [Robaxin] 500 mg PO Q6H PRN #30 tablet 05/26/18 Amox/Clav 875/125 [Augmentin] 1 each PO Q12H #14 tablet 09/03/18 Hydrocodone/Acetaminophen 1 - 2 each PO Q6H PRN #14 tablet 09/03/18 [Hydrocodon-Acetaminophen 5-325] Albuterol Sulf [Ventolin Hfa 1 - 2 puffs INH Q4HR PRN #1 inhaler 11/17/18 Inhaler] Benzonatate [Tessalon Perle] 100 - 200 mg PO TID PRN #30 capsule 11/17/18 Cetirizine HCl/Pseudoephedrine 1 each PO BID PRN #30 tab.er.12h 11/17/18 [Zyrtec-D Tablet] Amox/Clav 875/125 [Augmentin] 1 each PO Q12H #20 tablet 12/02/18 Mometasone Furoate [Nasonex] 1 spray NS BID #1 spray.pump 12/02/18 Cyclobenzaprine [Flexeril] 10 mg PO TID PRN #20 tablet 12/10/18 Hydrocodone/Acetaminophen 1 - 2 each PO Q6H PRN #14 tablet 12/10/18 [Hydrocodon-Acetaminophen 5-325] Ibuprofen [Motrin] 800 mg PO Q8H PRN #30 tablet 12/10/18 Hydrocodone/Acetaminophen 1 - 2 each PO Q6H PRN #14 tablet 01/11/19 [Hydrocodon-Acetaminophen 5-325] Benzonatate [Tessalon Perle] 100 - 200 mg PO TID PRN #30 capsule 02/27/19 Cetirizine HCl/Pseudoephedrine 1 each PO BID PRN #30 tab.er.12h 02/27/19 [Zyrtec-D Tablet] Fluticasone [Flonase] 1 sprays MICHELLE BID PRN #1 bottle 02/27/19 - Allergies Allergies/Adverse Reactions: Allergies Allergy/AdvReac Type Severity Reaction Status Date / Time shellfish derived Allergy Anaphylaxis Verified 06/13/19 02:01 - Social History Does the pt smoke?: Yes Smoking Status: Current every day smoker Does the pt drink ETOH?: Yes Does the pt have substance abuse?: No - Immunizations Immunizations are current?: Yes - POLST Patient has POLST: No PD ED PE NORMAL - Vitals Vital signs reviewed: Yes - General General: Alert and oriented X 3, No acute distress, Well developed/nourished - Neck Neck: Supple, no meningeal sign - Cardiac Cardiac: RRR, No murmur, No gallop, No rub - Respiratory Respiratory: No respiratory distress, Clear bilaterally - Abdomen Abdomen: Soft, Non tender - Back Back: No CVA TTP - Derm Derm: Normal color, Warm and dry, No rash - Extremities Extremities: No edema Results - Vitals Vitals: Oxygen O2 Source Room air - EKG (time done) No standard instances Rate: Rate (enter#) (74) Rhythm: NSR Reeder: Normal Intervals: Prolonged NV QRS: Normal Ischemia: Normal ST segments - Labs Labs: Laboratory Tests 06/13/19 06/13/19 06/13/19 02:50 02:50 02:50 WBC 7.0 RBC 3.89 L Hgb 11.0 L Hct 33.7 L MCV 86.6 MCH 28.3 MCHC 32.6 RDW 13.7 Plt Count 240 MPV 10.1 Neut # (Auto) 2.9 Lymph # (Auto) 3.4 Meigs # (Auto) 0.4 Eos # (Auto) 0.2 Baso # (Auto) 0.1 Absolute Nucleated RBC 0.00 Nucleated RBC % 0.0 D-Dimer 208.6 Sodium 137 Potassium 3.4 L Chloride 108 Carbon Dioxide 21 Anion Gap 8.0 BUN 15 Creatinine 0.7 Estimated GFR (MDRD) 116 Glucose 125 H Calcium 9.0 Total Bilirubin 1.0 AST 22 ALT 26 Alkaline Phosphatase 61 Troponin I High Sens Total Protein 7.0 Albumin 4.1 Globulin 2.9 Albumin/Globulin Ratio 1.4 Lipase 41 06/13/19 02:50 WBC RBC Hgb Hct MCV MCH MCHC RDW Plt Count MPV Neut # (Auto) Lymph # (Auto) Meigs # (Auto) Eos # (Auto) Baso # (Auto) Absolute Nucleated RBC Nucleated RBC % D-Dimer Sodium Potassium Chloride Carbon Dioxide Anion Gap BUN Creatinine Estimated GFR (MDRD) Glucose Calcium Total Bilirubin AST ALT Alkaline Phosphatase Troponin I High Sens < 2.3 L Total Protein Albumin Globulin Albumin/Globulin Ratio Lipase - Rads (name of study) chest xray Radiology: Prelim report reviewed, See rad report PD MEDICAL DECISION MAKING - ED course Complexity details: reviewed results, re-evaluated patient, considered differential, d/w patient Departure - Departure Disposition: Home, Self Care Clinical Impression: Chest pain Condition: Good Instructions: ED Chest Pain Atypical Unkn Cause Follow-Up: Arvind Virk MD [Primary Care Provider] - Discharge Date/Time: 06/13/19 06:04
--- NOTE | 2019-06-13 05:36 | XRAY Report ---
Reason: chest pain Procedure Date: 06/13/2019 Accession Number: [id number] / [id number] Procedure: XR - Chest 2 View X-Ray CPT Code: 96267 Final Report FULL RESULT: EXAM: CHEST RADIOGRAPHY EXAM DATE: 06/13/2019 05:12 AM CLINICAL HISTORY: Chest pain. COMPARISON: CHEST 2 VIEW 11/17/2018 12:41 PM. TECHNIQUE: 2 views. FINDINGS: Lungs/Pleura: No focal opacities evident. No pleural effusion. No pneumothorax. Normal volumes. Mediastinum: Heart and mediastinal contours are unremarkable. Other: None. IMPRESSION: Stable negative 2-view chest radiography. [facility]
[2019-06-13 06:03] VITALS: BP 112/71
== END 2019-06-13 06:04 | disposition home or self-care (01) ==
LOC: ED 01:48
DX: R07.9 Chest pain, unspecified (principal); F17.200 Nicotine dependence, unspecified, uncomplicated
CPT/HCPCS: 36415; 71046; 80053; 83690; 84484; 85025; 85379; 93005; 99284

== ENCOUNTER 2019-06-27 13:08 | Emergency (ER) | payer OTHER ==
[2019-06-27 13:16] VITALS: BP 112/74
[2019-06-27 15:05] LABS: BILIRUBIN,URINE NEGATIVE (NEGATIVE); GLUCOSE, URINE (UA) NEGATIVE (NEGATIVE); KETONES,URINE (UA) NEGATIVE (NEGATIVE); LEUKOCYTE ESTERASE, URINE NEGATIVE (NEGATIVE); NITRITE,URINE NEGATIVE (NEGATIVE); OCCULT BLOOD,URINE TRACE-LYSE (NEGATIVE); PROTEIN,URINE NEGATIVE (NEGATIVE); UROBILINOGEN,URINE 0.2 (NORMAL) E.U./dL (NORMAL)
[2019-06-27 15:10] LABS: CLARITY,URINE CLEAR (CLEAR); HCG UR QUAL NEGATIVE
--- NOTE | 2019-06-27 15:26 | ED Physician Documentation ---
History of Present Illness - Stated complaint Stated Complaint: BACK PX - Chief complaint Chief Complaint: Back Pain - History obtained from History obtained from: Patient - Additonal information Additional information: Patient comes emergency department complaining of low back pain for the last several days after sitting on the bed fixing her daughter's hair. Patient states she does not think she has had any other triggers for her pain. She denies any numbness or tingling in her lower extremities. No urinary retention or incontinence. Patient states that she has not been doing any heavy lifting or even working out recently. Patient denies any weakness in her lower extremities. She states the pain is in her sacral area and radiates to both sides. Patient states her last MRI was a couple of years ago and showed a lumbar disc herniation. She does not remember what level. Patient has seen her primary care physician on and off for this and has also been referred to physical therapy, which she states has not been helpful.Patient states the pain radiates down both of her legs, also. Review of Systems Ten Systems: 10 systems reviewed and negative Constitutional: reports: Reviewed and negative Eyes: reports: Reviewed and negative Ears: reports: Reviewed and negative Nose: reports: Reviewed and negative Throat: reports: Reviewed and negative Cardiac: reports: Reviewed and negative Respiratory: reports: Reviewed and negative GI: reports: Reviewed and negative : reports: Reviewed and negative Skin: reports: Reviewed and negative Musculoskeletal: reports: Back pain Neurologic: reports: Reviewed and negative Psychiatric: reports: Reviewed and negative Endocrine: reports: Reviewed and negative Immunocompromised: reports: Reviewed and negative PD PAST MEDICAL HISTORY - Past Medical History Past Medical History: Yes Cardiovascular: None Respiratory: None Neuro: None Endocrine/Autoimmune: None GI: None SHIRT CREASER: None : None HEENT: None Psych: None Musculoskeletal: Chronic back pain Derm: None Other Past Medical History: chronic back pain - Past Surgical History Past Surgical History: Yes General: Cholecystectomy, Other Ortho: 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 /SHIRT 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: 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 - Present Medications Home Medications: Ambulatory Orders Medication Instructions Recorded Confirmed Naproxen 500 mg PO BID #20 tablet 05/26/18 Oxycodone HCl/Acetaminophen 1 - 2 each PO Q6H PRN #25 tablet 05/26/18 [Percocet 5-325 mg Tablet] methocarbamoL [Robaxin] 500 mg PO Q6H PRN #30 tablet 05/26/18 Amox/Clav 875/125 [Augmentin] 1 each PO Q12H #14 tablet 09/03/18 Hydrocodone/Acetaminophen 1 - 2 each PO Q6H PRN #14 tablet 09/03/18 [Hydrocodon-Acetaminophen 5-325] Albuterol Sulf [Ventolin Hfa 1 - 2 puffs INH Q4HR PRN #1 inhaler 11/17/18 Inhaler] Benzonatate [Tessalon Perle] 100 - 200 mg PO TID PRN #30 capsule 11/17/18 Cetirizine HCl/Pseudoephedrine 1 each PO BID PRN #30 tab.er.12h 11/17/18 [Zyrtec-D Tablet] Amox/Clav 875/125 [Augmentin] 1 each PO Q12H #20 tablet 12/02/18 Mometasone Furoate [Nasonex] 1 spray NS BID #1 spray.pump 12/02/18 Cyclobenzaprine [Flexeril] 10 mg PO TID PRN #20 tablet 12/10/18 Hydrocodone/Acetaminophen 1 - 2 each PO Q6H PRN #14 tablet 12/10/18 [Hydrocodon-Acetaminophen 5-325] Ibuprofen [Motrin] 800 mg PO Q8H PRN #30 tablet 12/10/18 Hydrocodone/Acetaminophen 1 - 2 each PO Q6H PRN #14 tablet 01/11/19 [Hydrocodon-Acetaminophen 5-325] Benzonatate [Tessalon Perle] 100 - 200 mg PO TID PRN #30 capsule 02/27/19 Cetirizine HCl/Pseudoephedrine 1 each PO BID PRN #30 tab.er.12h 02/27/19 [Zyrtec-D Tablet] Fluticasone [Flonase] 1 sprays MICHELLE BID PRN #1 bottle 02/27/19 Acetaminophen with Codeine 1 each PO Q6HR 3 Days #12 tablet 06/27/19 [Tylenol with Codeine #3 Tablet] Cyclobenzaprine [Flexeril] 10 mg PO TID PRN #20 tablet 06/27/19 - Allergies Allergies/Adverse Reactions: Allergies Allergy/AdvReac Type Severity Reaction Status Date / Time shellfish derived Allergy Anaphylaxis Verified 06/27/19 13:13 - Social History Does the pt smoke?: Yes Smoking Status: Current some day smoker Does the pt drink ETOH?: Yes Does the pt have substance abuse?: No - Immunizations Immunizations are current?: Yes - POLST Patient has POLST: No PD ED PE NORMAL - Vitals Vital signs reviewed: Yes - General General: Alert and oriented X 3, No acute distress, Well developed/nourished - HEENT HEENT: Atraumatic, PERRL, EOMI, Moist mucous membranes - Neck Neck: Supple, no meningeal sign - Cardiac Cardiac: RRR, No murmur, Strong equal pulses - Respiratory Respiratory: No respiratory distress, Clear bilaterally - Abdomen Abdomen: Soft - Back Back: No CVA TTP, No spinal TTP, Other (Patient has tenderness over the bilateral parasacral area. No sciatic joint tenderness. No ) - Derm Derm: Normal color, Warm and dry, No rash - Extremities Extremities: No deformity, No edema (Spinal tenderness or step-off.) - Neuro Neuro: Alert and oriented X 3 - Psych Psych: Normal mood, Normal affect Results - Vitals Vitals: Vital Signs - 24 hr 06/27/19 13:14 Temperature 36.7 C Heart Rate 94 Respiratory 15 Rate Blood Pressure 112/74 O2 Saturation 100 Oxygen O2 Source Room air - Labs Labs: Laboratory Tests 06/27/19 14:55 Urine Color YELLOW Urine Clarity CLEAR Urine pH 7.0 Ur Specific [place] 1.015 Urine Protein NEGATIVE Urine Glucose (UA) NEGATIVE Urine Ketones NEGATIVE Urine Occult Blood TRACE-LYSE Urine Nitrite NEGATIVE Urine Bilirubin NEGATIVE Urine Urobilinogen 0.2 (NORMAL) Ur Leukocyte Esterase NEGATIVE Ur Microscopic Review NOT INDICATED Urine Culture Comments NOT INDICATED Urine HCG, Qual NEGATIVE PD MEDICAL DECISION MAKING - ED course Complexity details: considered differential, d/w patient ED course: Patient was treated symptomatically in the emergency department. I did discuss with her that she does not display concerning symptoms associated with her back pain and does not have a high risk history, as far as trauma. Patient has been advised to follow with her primary care physician and to discuss whether a repeat MRI would be helpful. Departure - Departure Disposition: 01 Home, Self Care Clinical Impression: Back pain Qualifiers: Back pain location: low back pain Chronicity: acute Back pain laterality: bilateral Sciatica presence: without sciatica Qualified Code(s): M54.5 - Low back pain Condition: Stable Instructions: ED Neck Back Pain General Prescriptions: Acetaminophen with Codeine [Tylenol with Codeine #3 Tablet] 1 each PO Q6HR 3 Days #12 tablet Cyclobenzaprine [Flexeril] 10 mg PO TID PRN #20 tablet PRN Reason: Spasms
[2019-06-27] MEDS ORDERED: HYDROmorphone 1 MG/ML CARPUJECT IM STA (15:28)
[2019-06-27] MEDS ORDERED: KETOROLAC 60 MG/2 ML VIAL IM STA (15:28)
== END 2019-06-27 16:46 | disposition home or self-care (01) ==
LOC: ED 13:08
DX: M54.5 Low back pain (principal); F17.200 Nicotine dependence, unspecified, uncomplicated
CPT/HCPCS: 81003; 81025; 96372; 99283; 99284; J1170; 81001; 87086

== ENCOUNTER 2019-07-17 19:14 | Emergency (ER) | payer OTHER ==
[2019-07-17 19:24] VITALS: BP 134/84
--- NOTE | 2019-07-17 19:32 | ED Physician Documentation ---
PD HPI LOWER EXT INJURY - Stated complaint Stated Complaint: RT ANKLE INJ - Chief complaint Chief Complaint: Trauma Ext - History obtained from History obtained from: Patient (She was jumping and injured her right ankle last night and has persistent lateral malleolar pain. No other injuries. Declines anything for the pain. No possibility of .) Review of Systems Constitutional: denies: Fever, Chills Eyes: denies: Loss of vision, Decreased vision Ears: denies: Loss of hearing, Ear pain Nose: denies: Rhinorrhea / runny nose, Congestion PD PAST MEDICAL HISTORY - Past Medical History Cardiovascular: None Respiratory: None Neuro: None Endocrine/Autoimmune: None GI: None [employer]: None : None HEENT: None Psych: None Musculoskeletal: Chronic back pain Derm: None - Past Surgical History Past Surgical History: Yes General: Cholecystectomy, Other Ortho: Other /[employer]: section - Present Medications Home Medications: Ambulatory Orders Medication Instructions Recorded Confirmed Omeprazole Magnesium [Prilosec] 10 mg PO DAILY 07/17/19 07/17/19 Zolpidem Tartrate [Ambien] 10 mg PO PRN PRN 07/17/19 07/17/19 - Allergies Allergies/Adverse Reactions: Allergies Allergy/AdvReac Type Severity Reaction Status Date / Time shellfish derived Allergy Anaphylaxis Verified 07/17/19 19:19 - Social History Does the pt smoke?: Yes Smoking Status: Current some day smoker Does the pt drink ETOH?: Yes Does the pt have substance abuse?: No - Immunizations Immunizations are current?: Yes - POLST Patient has POLST: No PD ED PE NORMAL - Vitals Vital signs reviewed: Yes - General General: Alert and oriented X 3, No acute distress - Extremities Extremities: Other (There is tenderness and swelling over the right lateral malleolus without deformity. No tenderness of the fifth metatarsal. No tenderness at the proximal fibula.) - Neuro Neuro: Alert and oriented X 3, Normal speech Results - Vitals Vitals: Vital Signs - 24 hr 07/17/19 19:22 Temperature 36.6 C Heart Rate 104 H Respiratory 15 Rate Blood Pressure 134/84 H O2 Saturation 98 Oxygen O2 Source Room air - Rads (name of study) Three-view right ankle x-ray Radiology: EMP read contemporaneously (Normal) Departure - Departure Disposition: 01 Home, Self Care Clinical Impression: Right ankle sprain Qualifiers: Involved ligament of ankle: anterior talofibular ligament Condition: Good Record reviewed to determine appropriate education?: Yes Instructions: ED Sprain Ankle W X Ray Comments: Tylenol or ibuprofen as needed for pain, return for new or worsening symptoms. Ice and elevate. Follow-up with your doctor in a week if not better.
--- NOTE | 2019-07-17 20:02 | XRAY Report ---
Reason: ankle inj Procedure Date: 07/17/2019 Accession Number: [id number] / [id number] Procedure: XR - Ankle 3 View RT CPT Code: Final Report FULL RESULT: EXAM: RIGHT ANKLE RADIOGRAPHY EXAM DATE: 07/17/2019 07:53 PM. CLINICAL HISTORY: Ankle injury. Right ankle pain after landing wrong after jumping yesterday. History of ankle injury to lateral right ankle. COMPARISON: None. TECHNIQUE: 3 views. FINDINGS: Bones: Normal. No fractures or bone lesions. Joints: Normal. No effusion. No subluxations. The ankle mortise is normally aligned. Soft Tissues: Normal. No soft tissue swelling. IMPRESSION: Normal ankle radiography. [facility]
== END 2019-07-17 20:11 | disposition home or self-care (01) ==
LOC: ED 19:14
DX: S93.491A Sprain of other ligament of right ankle, initial encounter (principal); X58.XXXA Exposure to other specified factors, initial encounter; Y93.39 Activity, other involving climbing, rappelling and jumping off; F17.200 Nicotine dependence, unspecified, uncomplicated
CPT/HCPCS: 99282; 99283